=== PATIENT | female | born 1965 | race Caucasian/White ===

== ENCOUNTER 2018-03-07 21:28 | Emergency (ER) | payer OTHER ==
[~2018-03-07] VITALS: Ht 167.6 cm; Wt 82.0 kg
[2018-03-07] MEDS ORDERED: ONDANSETRON HCL 4MG/2ML VIAL IV STA (22:14)
[2018-03-07] MEDS ORDERED: SODIUM CHLORIDE 0.9% 1,000 ML IV ONE (22:14)
[2018-03-07] MEDS ORDERED: MORPHINE SULFATE 4 MG/ML CPJ (NOT FOR IM USE) IV ONE (22:45)
[2018-03-07 22:58] LABS: BASOPHILS % 0.4 % (0.0-2.0); EOSINOPHILS % 1.9 % (0.0-5.0); HEMATOCRIT. 34.5 % (36.0-48.0); HEMOGLOBIN. 11.3 g/dL (12.0-16.0); LYMPHOCYTES % 20.7 % (20.0-50.0); MEAN CORPUSCULAR HEMOGLOBIN 27.2 pg (28.0-32.0); MEAN CORPUSCULAR VOLUME 83.3 fL (81.0-99.0); MEAN PLATELET VOLUME 9.6 fl (7.4-10.4); MONOCYTES % 10.8 % (2.0-8.0); NEUTROPHILS % 66.2 % (40.0-76.0); PLATELET 187 x1000/uL (130-400); RED BLOOD CELL COUNT 4.14 mill/uL (4.2-5.4); RED CELL DISTRIBUTION WIDTH 16.1 % (11.6-14.6)
[2018-03-07 23:00] LABS: CHLORIDE 109 mEq/L (98-107)
[2018-03-07 23:02] LABS: HCG SCREEN NEGATIVE
[2018-03-07 23:03] LABS: PROTHROMBIN TIME 10.2 sec (9.1-11.1)
[2018-03-07 23:04] LABS: ETHANOL BLOOD < 10 mg/dL
[2018-03-07] MEDS ORDERED: KETOROLAC 30MG/ML VIAL IV ONE (23:15)
[2018-03-07 23:25] LABS: CREATINE KINASE 131 IU/L (26-192)
[2018-03-07 23:37] LABS: CLARITY URINE CLEAR (CLEAR); COLOR URINE YELLOW (YELLOW); KETONES URINE NEGATIVE (NEGATIVE); LEUKOCYTE ESTERASE URINE NEGATIVE (NEGATIVE); NITRITE URINE NEGATIVE (NEGATIVE); OCCULT BLOOD URINE NEGATIVE (NEGATIVE); PROTEIN URINE NEGATIVE (NEGATIVE); SPECIFIC GRAVITY URINE 1.008 (1.005-1.030); UROBILINOGEN URINE 0.2 E.U./dL (0.2-1.0)
[2018-03-07 23:58] LABS: *AMPHETAMINES SCREEN URINE NEGATIVE (NEGATIVE); *BARBITURATES SCREEN URINE NEGATIVE (NEGATIVE); *BENZODIAZEPINES SCREEN URINE NEGATIVE (NEGATIVE); *COCAINE SCREEN URINE NEGATIVE (NEGATIVE); METHADONE URINE SCREEN NEGATIVE (NEGATIVE); OPIATES URINE SCREEN NEGATIVE (NEGATIVE)
[2018-03-07 23:59] LABS: CANNABINOID URINE SCREEN NEGATIVE (NEGATIVE); PHENCYCLIDINE URINE SCREEN NEGATIVE (NEGATIVE)
[2018-03-08 01:17] VITALS: BP 106/64
== END 2018-03-08 01:20 | disposition home or self-care (01) ==
LOC: ER 21:28
DX: T52.0X1A Toxic effect of petroleum products, accidental (unintentional), initial encounter (principal); R51 Headache; R11.0 Nausea; Z98.890 Other specified postprocedural states; Z85.118 Personal history of other malignant neoplasm of bronchus and lung; Y92.89 Other specified places as the place of occurrence of the external cause
CPT/HCPCS: 36415; 80053; 80305; 81003; 82550; 84703; 85025; 85610; 93005; 96374; 96375; 99285; G0482; J2270; J2405; J7030